=== PATIENT | female | born 2000 | race Caucasian/White ===

== ENCOUNTER 2022-08-03 00:20 | Emergency (ER) | payer SELFPAY ==
[~2022-08-03] VITALS: Ht 160 cm; Wt 57.6 kg
--- NOTE | 2022-08-03 01:07 | NUR ---
EMT AT PT'S BEDSIDE FOR EKG
[2022-08-03 01:15] VITALS: BP 119/84
--- NOTE | 2022-08-03 01:26 | NUR ---
Patient eloped from facility. ER MD notified.
== END 2022-08-03 01:26 | disposition left against medical advice (07) ==
LOC: ER 00:24
DX: R07.89 Other chest pain (principal)

== ENCOUNTER 2022-08-27 22:14 | Emergency (ER) | payer SELFPAY ==
[~2022-08-27] VITALS: Ht 162.6 cm; Wt 57.6 kg
[2022-08-27 22:23] VITALS: BP 117/72
[2022-08-27] MEDS ORDERED: GUAI1TBM19 PO (23:06)
[2022-08-27] MEDS ORDERED: BENZ-13 PO (23:06)
--- NOTE | 2022-08-27 23:12 | NUR ---
Patient discharged to home in stable condition. Written and verbal after care instructions given. Patient verbalizes understanding of instruction.
== END 2022-08-27 23:12 | disposition home or self-care (01) ==
LOC: ER 22:23
DX: R00.2 Palpitations (principal); F41.9 Anxiety disorder, unspecified; F32.A Depression, unspecified; Z79.899 Other long term (current) drug therapy

== ENCOUNTER 2022-11-20 23:29 | Emergency (ER) | payer SELFPAY ==
[~2022-11-20] VITALS: Ht 162.6 cm; Wt 58.5 kg
[~2022-11-20 23:29] MED LIST: BENZ-13 PO; GUAI1TBM19 PO
--- NOTE | 2022-11-20 23:45 | NUR ---
Pt bibself c/o +, hit head on the rails and c/o stomach pain 12/31 ps. Pt A/ox4. Tolerating R/A well with no resp distress. Amb with steady gait.
--- NOTE | 2022-11-21 00:11 | NUR ---
US TECH AT PT'S BEDSIDE
[2022-11-21 00:48] LABS: BASOPHILS % (AUTO) 0.5 % (0.0-2.0); EOSINOPHILS % (AUTO) 1.5 % (0.0-6.0); HEMATOCRIT 37 % (33-45); HEMOGLOBIN 12.1 g/dL (11.5-14.8); LYMPHOCYTES # (AUTO) 1.9 K/uL (0.8-4.8); LYMPHOCYTES % (AUTO) 21.7 % (20.0-44.0); MEAN CORPUSCULAR HGB CONC 33 g/dl (31.0-36.0); MEAN CORPUSCULAR VOLUME 85 fL (82-100); MONOCYTES # (AUTO) 0.8 K/uL (0.1-1.30); MONOCYTES % (AUTO) 9.5 % (2.0-12.0); NEUTROPHILS # (AUTO) 5.7 K/uL (1.8-8.9); NEUTROPHILS % (AUTO) 66.8 % (43.0-81.0); PLATELET COUNT (AUTO) 273 K/uL (150-450); RED BLOOD CELL COUNT(AUTO) 4.34 MIL/uL (4.0-5.2); WHITE BLOOD COUNT (AUTO) 8.6 K/uL (4.3-11.0)
[2022-11-21] MEDS ORDERED: ACETAMINOPHEN 325 MG TABLET PO ONE (01:00)
[2022-11-21] MEDS ORDERED: ACETAMINOPHEN ES 500 MG TABLET ONE (01:08)
[2022-11-21 01:18] LABS: CALCIUM, SERUM 8.8 mg/dL (8.5-10.1); CREATININE 0.8 mg/dL (0.6-1.3); POTASSIUM 3.5 mmol/L (3.5-5.1)
[2022-11-21 01:23] LABS: ALBUMIN 3.7 g/dL (3.4-5.0); BILIRUBIN,DIRECT 0.1 mg/dL (0.0-0.2); BILIRUBIN,TOTAL 0.2 mg/dL (0.2-1.0); TOTAL PROTEIN, SERUM 6.6 g/dL (6.4-8.2)
--- NOTE | 2022-11-21 01:26 | NUR ---
Patient does not wish to proceed with medical care recommended by Dr. Chavez. Patient given information related to possible complications, up to and including , which could occur as a result of leaving the hospital at this time. Patient verbalizes understanding of risks involved due to leaving against medical advice. Patient has signed AMA form.
[2022-11-21 01:40] VITALS: BP 135/88
== END 2022-11-21 01:41 | disposition left against medical advice (07) ==
LOC: ER 23:31
DX: O26.899 Other specified pregnancy related conditions, unspecified trimester (principal); R10.9 Unspecified abdominal pain; F41.9 Anxiety disorder, unspecified; F32.A Depression, unspecified; Z3A.00 Weeks of gestation of pregnancy not specified
CPT/HCPCS: 36415; 76856-TC; 80048-TC; 80076-TC; 84702-TC; 84703-TC; 85025-TC

== ENCOUNTER 2023-01-01 19:17 | Emergency (ER) | payer SELFPAY ==
[~2023-01-01] VITALS: Ht 162.6 cm; Wt 57.4 kg
--- NOTE | 2023-01-01 20:00 | NUR ---
PT HAS BLOOD TINGE WHEN SHE WIPED HER GENITALS. PT IS 10 WEEKS CLAIMED. + HYPOGASTRIC PAIN. HAD HEADACHE YESTERDAY TOOK 2 TABS TYLENOL. SHE HAD YAEL DONE 2 DAYS AGO TO SHOW THAT SHE IS . PLACED COMFORTABLY IN BED. VITALS CHECKED.
--- NOTE | 2023-01-01 20:08 | NUR ---
CHANGED TO [facility]. CUP OFFERED FOR URINALYSIS.
--- NOTE | 2023-01-01 20:17 | NUR ---
URINE SPECIMEN SENT TO LAB
--- NOTE | 2023-01-01 20:25 | NUR ---
BLOOD DRAWN AND SENT TO LAB
[2023-01-01] MEDS ORDERED: IV NS 0.9% 1,000 ML BAG IV ONE (20:30)
--- NOTE | 2023-01-01 20:34 | NUR ---
YAEL GARCIA AT BEDSIDE
[2023-01-01 20:39] LABS: BASOPHILS # (AUTO) 0.1 K/uL (0.0-0.2); BASOPHILS % (AUTO) 0.6 % (0.0-2.0); EOSINOPHILS % (AUTO) 1.7 % (0.0-6.0); HEMATOCRIT 36 % (33-45); HEMOGLOBIN 12.1 g/dL (11.5-14.8); LYMPHOCYTES # (AUTO) 1.4 K/uL (0.8-4.8); LYMPHOCYTES % (AUTO) 16.9 % (20.0-44.0); MEAN CORPUSCULAR HGB CONC 33 g/dl (31.0-36.0); MEAN CORPUSCULAR VOLUME 85 fL (82-100); MONOCYTES # (AUTO) 0.7 K/uL (0.1-1.30); MONOCYTES % (AUTO) 8.7 % (2.0-12.0); NEUTROPHILS # (AUTO) 6.2 K/uL (1.8-8.9); NEUTROPHILS % (AUTO) 72.1 % (43.0-81.0); PLATELET COUNT (AUTO) 243 K/uL (150-450); RED BLOOD CELL COUNT(AUTO) 4.26 MIL/uL (4.0-5.2); WHITE BLOOD COUNT (AUTO) 8.6 K/uL (4.3-11.0)
[2023-01-01 20:39] LABS: BILIRUBIN,URINE NEGATIVE (NEGATIVE); COLOR,URINE YELLOW (YELLOW); LEUKOCYTE ESTERASE ,URINE 1+ (NEGATIVE); NITRITE, URINE NEGATIVE (NEGATIVE); PH,URINE 7.5 (5.0-8.0); PROTEIN,URINE NEGATIVE (NEGATIVE); UGLUCOSE NEGATIVE (NEGATIVE); UROBILINOGEN,URINE 0.2 EU/dL (0.2)
[2023-01-01 20:53] LABS: CALCIUM, SERUM 9.2 mg/dL (8.5-10.1); CREATININE 0.5 mg/dL (0.6-1.3); POTASSIUM 3.7 mmol/L (3.5-5.1)
[2023-01-01] MEDS ORDERED: CEPH500C2 PO (21:15)
--- NOTE | 2023-01-01 21:30 | NUR ---
Patient discharged to home in stable condition. Written and verbal after care instructions given. Patient verbalizes understanding of instruction. IV removed. Catheter intact and site benign. Pressure and 4x4 applied to site. No bleeding noted.
[2023-01-01 21:31] LABS: RBC,URINE 21-50 /HPF (0-2)
[2023-01-01 21:32] LABS: BACTERIA,URINE 1+ /HPF (None Seen); MUCUS,URINE Few /LPF (None Seen); URINE AMORPHOUS PHOSPHATES Few /HPF (None Seen)
[2023-01-01 21:35] VITALS: BP 109/62
== END 2023-01-01 21:30 | disposition home or self-care (01) ==
LOC: ER 19:20
DX: O20.0 Threatened abortion (principal); O23.42 Unspecified infection of urinary tract in pregnancy, second trimester; N39.0 Urinary tract infection, site not specified; F32.A Depression, unspecified; F41.9 Anxiety disorder, unspecified; Z79.899 Other long term (current) drug therapy; Z3A.10 10 weeks gestation of pregnancy
CPT/HCPCS: 99284; 96360; 76856; 85025; 80048; 87086; 81001; 36415; 86850; 84702; J7030